=== PATIENT | female | born 1960 | race African-American/Black ===

== ENCOUNTER 2017-04-22 11:48 | Inpatient (IN) | payer OTHER ==
[2017-04-22 14:07] VITALS: BMI 18.8
--- NOTE | 2017-04-22 14:18 | HP ---
Admission ROS S - HPI Chief Complaint: I NEED HELP TO GO TO REHAB FOR ALCOHOL AND CRACK DEPENDENCE Allergies/Adverse Reactions: Allergies Allergy/AdvReac Type Severity Reaction Status Date / Time No Known Allergies Allergy Verified 04/22/17 14:10 History of Present Illness: THIS 57 YEARS OLD FEMALE WITH ALCOHOL AND COCAINE DEPENDENCE,SEEKING REHAB,LAST TREATMENT 2016 CORNER STONE HTN ON NO MED VERTIGO 12.5 MGS PO TID PRN FOR PRN ASTHMA WEIGHT LOSS ANXIETY,DEPRESSION LONGEST SOBRIETY 7 YEARS AMBULATION WITH CANE Exam Limitations: No Limitations - Ebola screening Have you traveled outside of the country in the last 21 days: No (N) Have you had contact with anyone from an Ebola affected area: No Have you been sick,other than usual withdrawal symptoms: No Do you have a fever: No - Review of Systems Constitutional: No Symptoms Reported, Unintentional Wgt. 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) Respiratory: reports: No Symptoms reported, Other (ASTHMA) Cardiac: reports: No Symptoms Reported GI: reports: No Symptoms Reported : reports: No Symptoms Reported Musculoskeletal: reports: No Symptoms Reported Integumentary: reports: No Symptoms Reported Neuro: reports: No Symptoms reported Endocrine: reports: No Symptoms Reported Hematology: reports: Other (HIV) Psychiatric: reports: Anxious, Depressed (INSOMNIA) Patient History - Patient Medical History Hx Anemia: Yes Hx Asthma: Yes Hx Chronic Obstructive Pulmonary Disease (COPD): No Hx Cancer: No Hx Cardiac Disorders: No Hx Congestive Heart Failure: Yes (1x in the past ) Hx Hypertension: Yes (NO MED) Hx Hypercholesterolemia: No Hx Pacemaker: No HX Cerebrovascular Accident: No Hx Seizures: No Hx Dementia: Yes (forgetfull ) Hx Diabetes: No Hx Gastrointestinal Disorders: No Hx Liver Disease: No Hx Genitourinary Disorders: No Hx Sexually Transmitted Disorders: No Hx Renal Disease (ESRD): No Hx Thyroid Disease: No Hx Human Immunodeficiency Virus (HIV): Yes (Atripla SINCE 1994) Hx Hepatitis C: No Hx Depression: Yes (ANXIETY) Hx Suicide Attempt: No Hx Schizophrenia: No Other Medical History: NO SUICIDAL,NO HOMICIDAL - Patient Surgical History Hx Abdominal Surgery: Yes (ectopic pregnanancy ) Hx Orthopedic Surgery: Yes (fx akle ) - PPD History Previous Implant?: Yes Documented Results: Positive w/o proof PPD to be Administered?: No - Reproductive History Patient is a Female of Child Bearing Age (11 -55 yrs old): No Last Menstrual Period: 10/28/10 Patient : No - Smoking Cessation Smoking history: Current every day smoker Have you smoked in the past 12 months: Yes Aproximately how many cigarettes per day: 10 Hx Chewing Tobacco Use: No Initiated information on smoking cessation: Yes 'Breaking Loose' booklet given: 04/22/17 - Substance & Tx. History Hx Alcohol Use: Yes Substance Use Type: Alcohol Hx Substance Use Treatment: Yes ([place] [address]) - Substances Abused Crack Route: Smoking Frequency: 3-6 times per week Amount used: $100 AND UP Age of first use: 18 Date of Last Use: 04/22/17 Heroin Route: Inhalation Frequency: 1-3 times last 30 days Amount used: 6 BAGS Age of first use: 18 Date of Last Use: 04/22/17 Alcohol Route: Oral Frequency: 3-6 times per week Amount used: 1 PINT OF VODKA Age of first use: 14 Date of Last Use: 04/22/17 Family Disease History - Family Disease History Family Disease History: CA: Grandparent, Respiratory: Grandparent, Other: Mother (alcohol and drug dependencies ) Admission Physical Exam S - Vital Signs Vital Signs: Vital Signs - 24 hr 04/22/17 14:04 Temperature 96.0 F L Pulse Rate 69 Respiratory 16 Rate Blood Pressure 143/89 - Physical General Appearance: Yes: Within Normal Limits HEENTM: Yes: Hearing grossly Normal, Normal ENT Inspection, Pharynx Normal Respiratory: Yes: Lungs Clear, Normal Breath Sounds, No Respiratory Distress Neck: Yes: Within Normal Limits, Supple, Trachea in good position Breast: Yes: Breast Exam Deferred Cardiology: Yes: Within Normal Limits, Regular Rhythm, Regular Rate, S1, S2 Abdominal: Yes: Within Normal Limits, Normal Bowel Sounds, Non Tender, Flat, Soft Genitourinary: Yes: Within Normal Limits Back: Yes: Within Normal Limits Musculoskeletal: Yes: full range of Motion, Muscle Pain Extremities: Yes: Normal Capillary Refill, Normal Inspection, Other (HIPS PAIN AMBULATION WITH CANE) Neurological: Yes: Within Normal Limits, machine operator farmworker II-XII NML intact, Alert, Normal Mood/Affect, Normal Response Integumentary: Yes: Within Normal Limits Lymphatic: Yes: Within Normal Limits - Diagnostic (1) Alcohol dependence Current Visit: No Status: Chronic Comment: . (2) Cannabis dependence Current Visit: No Status: Chronic Comment: . (3) Nicotine dependence Current Visit: No Status: Chronic Comment: . (4) Cocaine dependence Current Visit: Yes Status: Acute (5) Methadone maintenance therapy patient Current Visit: Yes Status: Acute (6) Arthritis Current Visit: No Status: Acute Comment: . (7) Substance or medication-induced sleep disorder Current Visit: No Status: Acute (8) HIV disease Current Visit: No Status: Chronic Comment: . (9) Use of cane as ambulatory aid Current Visit: Yes Status: Acute Cleared for Admission [facility] - Detox or Rehab [facility] Level of Care: Medically Managed Claeared for Rehab Admission: Yes [facility] Breath Alcohol Content Breath Alcohol Content: 0 Urine Pregancy Test - Result Urine Test Results: Negative- NO Line Present Urine Drug Screen - Results Drug Screen Negative: No Urine Drug Screen Results: AMELIA-Cocaine, OPI-Opiates, MTD-Methadone, OXY- Oxycodone
[2017-04-22] MEDS ORDERED: MENTHOL/PHENOL 1 EACH UD MM PRN (14:55)
[2017-04-22] MEDS ORDERED: P-EPHED 60MG/TRIPROLIDI 2.5MG TABLET PO PRN (14:55)
[2017-04-22] MEDS ORDERED: MAGNESIUM CITRATE 300 ML BOTTLE PO PRN (14:55)
[2017-04-22] MEDS ORDERED: hydrOXYzine PAMOATE 25 MG CAPSULE (FP) PO PRN (14:55)
[2017-04-22] MEDS ORDERED: ACETAMINOPHEN 325 MG TABLET (FP) PO PRN (14:55)
[2017-04-22] MEDS ORDERED: guaiFENesin/D-METHORPHAN HB 10 ML UNIT-DOSE CUPS PO PRN (14:55)
[2017-04-22] MEDS ORDERED: MAGNESIUM HYDROX 2400MG/30ML ORAL SUSPENSION 30 ML CUP PO PRN (14:55)
[2017-04-22] MEDS ORDERED: MECLIZINE HCL 12.5 MG TABLET PO PRN (14:59)
[2017-04-22] MEDS ORDERED: DOCUSATE SODIUM 100 MG CAPSULE (FP) PO PRN (14:59)
[2017-04-22] MEDS ORDERED: ALBUTEROL SO4 18 GM HFA INHALER IH PRN (14:59)
[2017-04-22 17:18] LABS: HEMOGLOBIN 12.1 GM/dL (10.7-15.3); MCH 29.2 pg (25.7-33.7); MEAN CELL VOLUME 91.4 fl (80-96); MEAN PLT VOLUME 9.3 fl (7.5-11.1); PLATELET COUNT 255 K/MM3 (134-434); RBC 4.16 M/mm3 (3.60-5.2); RDW 13.1 % (11.6-15.6); WHITE BLOOD COUNT 9.7 K/mm3 (4.0-10.0)
[2017-04-22 17:46] LABS: ALBUMIN 3.2 g/dl (3.4-5.0); CALCIUM 8.3 mg/dL (8.5-10.1); CHLORIDE 104 mmol/L (98-107); POTASSIUM 3.6 mmol/L (3.5-5.1); SODIUM 140 mmol/L (136-145)
[2017-04-22 17:52] LABS: ALK PHOS 112 U/L (45-117); ANION GAP 9 (8-16); BILIRUBIN,TOTAL 0.8 mg/dL (0.2-1.0); BLOOD UREA NITROGEN 10 mg/dL (7-18); CO2 27 mmol/L (21-32); CREATININE 0.8 mg/dL (0.55-1.02); GLUCOSE,RANDOM 62 mg/dL (74-106); SGOT/AST 19 U/L (15-37); SGPT/ALT 22 U/L (12-78)
[2017-04-22] MEDS: THIAMINE HCL 100 MG TABLET (FP) PO SCH (22:17)
--- NOTE | 2017-04-23 00:49 | PN ---
S Progress Note Note: Patient with abnormal EKG was seen and evaluated at bedside. Patient's EKG indicates sinus bradycardia, T wave abnormality considering anterolateral ischemia. Prolonged QT/QTc was 644/632 ms and 648/636 ms respectively and TX interval was 134/140 ms. Patient reports fatigue and denies any form of pain, SOB, nausea or vomiting. Vital signs stable and potassium level was 3.6. Dr Marie was contacted and EKG faxed to her. She reviewed EKG and advised that patient can be sent to ER for further evaluation. Patient refused to go to ER. Risks and consequences of patient's action including the possibility of stroke explained to the patient. She verbalized understanding of instructions and she signed the refusal of medical treatment form. Fluid hydration encouraged. Will monitor patient
[2017-04-23] MEDS: EMTRICITABINE 200MG/TENOFOVIR 300MG PO SCH (09:59)
[2017-04-23] MEDS: EFAVIRENZ 600 MG TABLET PO SCH (10:00)
[2017-04-23] MEDS: FLUTICASONE PROP 0.05% 16 GM NASAL SPRAY NS SCH (10:00)
[2017-04-23] MEDS: PRENATAL VITAMINS W/ FOLIC ACID TABLET (FP) PO SCH (10:00)
[2017-04-23] MEDS: GABAPENTIN 400 MG CAPSULE (FP) PO SCH ×3 (10:00→21:43)
[2017-04-23] MEDS ORDERED: PATIENT'S OWN MEDICATION (NON-FORMULARY) (Efavirenz/Emtricitab/Tenofovir 1 TAB) PO SCH (10:00)
[2017-04-23] MEDS ORDERED: PT OWN MED DRAWER 7, Y5N ONE (10:08)
--- NOTE | 2017-04-23 10:31 | PN ---
[facility] Progress Note Note: methadone on hold due to prolong qinitial ekg brdycardia with qt 608/586 repeat this am showed bradycardia vpcs 50/min polong qt 580 Vital Signs Period Temp Pulse Resp BP Sys/Umanzor Pulse Ox Last 24 Hr 96.0 F-98.7 F 50-70 16-18 112-143/71-89 Vital Signs Temperature 98.1 F 04/23/17 09:45 Pulse Rate 50 L 04/23/17 09:45 Respiratory Rate 16 04/23/17 09:45 Blood Pressure 118/71 04/23/17 09:45 O2 Sat by Pulse Oximetry (%) no withdrawal symptom discussed with AGREED WITH HOLDING METHADONE UNTIL FURTHER EVALUATION BY DR NAVARRETE
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
--- NOTE | 2017-04-23 14:18 | EKG ---
Test Reason : Blood Pressure : / mmHG Vent. Rate : 058 BPM Atrial Rate : 058 BPM P-R Int : 140 ms QRS Dur : 076 ms QT Int : 648 ms P-R-T Axes : 067 018 063 degrees QTc Int : 636 ms SINUS BRADYCARDIA POSSIBLE LEFT ATRIAL ENLARGEMENT T WAVE ABNORMALITY, CONSIDER ANTEROLATERAL ISCHEMIA PROLONGED QT ABNORMAL ECG WHEN COMPARED WITH ECG OF 22-APR-2017 22:26, NONSPECIFIC T WAVE ABNORMALITY NOW EVIDENT IN INFERIOR LEADS Confirmed by ZACH SANCHEZ MD ([id number]) on 04/23/2017 2:18:09 PM Referred By: Confirmed By:ZACH SANCHEZ MD
--- NOTE | 2017-04-23 14:19 | EKG ---
Test Reason : Blood Pressure : / mmHG Vent. Rate : 058 BPM Atrial Rate : 058 BPM P-R Int : 134 ms QRS Dur : 076 ms QT Int : 644 ms P-R-T Axes : 060 010 086 degrees QTc Int : 632 ms SINUS BRADYCARDIA POSSIBLE LEFT ATRIAL ENLARGEMENT T WAVE ABNORMALITY, CONSIDER ANTEROLATERAL ISCHEMIA PROLONGED QT ABNORMAL ECG NO PREVIOUS ECGS AVAILABLE Confirmed by ZACH SANCHEZ MD ([id number]) on 04/23/2017 2:18:51 PM Referred By: Confirmed By:ZACH SANCHEZ MD
[2017-04-23] MEDS ORDERED: ESCITALOPRAM OXALATE 10 MG TABLET (FP) PO SCH (16:30)
[2017-04-23] MEDS ORDERED: METHADONE HCL 10 MG TABLET PO ONE (17:01)
--- NOTE | 2017-04-23 17:13 | PN ---
[facility] Progress Note (SOAP) Subjective: pateint found to have prolonged qtc on admission - methadone dose 200mg daily, ldm yesteray, refusing to go to ed as recommended. methadone dose held for today, repeatekg shows derasing qtc, patietn reports becoming uncomforale off methadone, vaginal discharge and pid sympotms. Objective: 04/23/17 18:30 Vital Signs - 24 hr 04/22/17 04/23/17 04/23/17 20:50 00:43 04:46 Temperature 98.7 F 97.4 F L Pulse Rate 67 70 Respiratory 18 18 18 Rate Blood Pressure 112/77 118/77 04/23/17 04/23/17 07:44 09:45 Temperature 97.9 F 98.1 F Pulse Rate 50 L 50 L Respiratory 18 16 Rate Blood Pressure 129/87 118/71 brdycardic 04/23/17 18:30 Laboratory Tests 04/22/17 04/22/17 04/22/17 15:40 15:40 15:40 WBC 9.7 D RBC 4.16 Hgb 12.1 D Hct 38.0 MCV 91.4 MCH 29.2 MCHC 32.0 RDW 13.1 D Plt Count 255 MPV 9.3 D Sodium 140 Potassium 3.6 Chloride 104 Carbon Dioxide 27 Anion Gap 9 BUN 10 Creatinine 0.8 Creat Clearance w eGFR > 60 Random Glucose 62 L Calcium 8.3 L Total Bilirubin 0.8 D AST 19 ALT 22 Alkaline Phosphatase 112 Total Protein 9.0 H Albumin 3.2 L RPR Titer Nonreactive hypoalbuminemia, low k Assessment: 04/23/17 18:30 prolonged qtc 2/2 methadone dose, methadone held, qc decreasing but patient uncomfortable, understands the risks of continuing methaadoen with prolonged qtc - agrees to decrease methadone and split dose 75mg bid first dose now. repeat ekg in am, monistat for yeast infection, cleocin for pid (methronidazole can prolong qtc), will d/c trazadone as that also can prolong qtc. . will follow, patient is well aware of risks of torsad with continued methadone adminsitration and has chosen to continue treatment at a reduced dose. wednesday will address if dose can be further reduced. avoid all qtc prolonging medication. If any sympotms palpiatitions, dizziness patient is to go to the nurse and be transferred to Ed. check mg level, will supplement k x1 dose 04/23/17 18:34
[2017-04-23] MEDS ORDERED: METHADONE HCL 10 MG TABLET PO SCH (17:15)
[2017-04-23] MEDS ORDERED: POTASSIUM CHLORIDE TABS 20 MEQ TABLET.ER (FP) PO ONE (17:30)
[2017-04-23] MEDS ORDERED: METHADONE 40 MG, METHADONE 30 MG, METHADONE 5 MG PO ONE (17:45)
[2017-04-23] MEDS ORDERED: METHADONE 40 MG, METHADONE 30 MG, METHADONE 5 MG PO SCH (18:00)
[2017-04-23] MEDS ORDERED: METHADONE HCL 5 MG TABLET ONE (18:58)
[2017-04-23] MEDS ORDERED: METHADONE HCL 10 MG TABLET ONE (18:58)
[2017-04-23] MEDS ORDERED: METHADONE HCL 40 MG DISPERSABLE TABLET ONE (18:59)
[2017-04-23] MEDS: MICONAZOLE NITRATE 100 MG SUPP SUPP.VAG PV SCH (21:43)
[2017-04-23] MEDS: CLINDAMYCIN HCL 150 MG CAPSULE (FP) PO SCH (21:43)
[2017-04-23] MEDS: THIAMINE HCL 100 MG TABLET (FP) PO SCH (21:43)
[2017-04-23] MEDS: SUVOREXANT 10 MG TABLET PO SCH (21:44)
[2017-04-23] MEDS ORDERED: traZODone HCL 150 MG TABLET PO SCH (22:00)
[2017-04-23] MEDS ORDERED: metroNIDAZOLE 250 MG TABLET PO SCH (22:00)
[2017-04-23] MEDS ORDERED: DOCUSATE SODIUM 100 MG CAPSULE (FP) PO SCH (22:00)
[2017-04-23 23:06] LABS: URINE APPEARANCE CLEAR; URINE BILIRUBIN NEGATIVE (NEGATIVE); URINE BLOOD NEGATIVE (NEGATIVE); URINE COLOR YELLOW; URINE GLUCOSE (UA) NEGATIVE (NEGATIVE); URINE KETONE NEGATIVE (NEGATIVE); URINE NITRITE NEGATIVE (NEGATIVE); URINE PROTEIN NEGATIVE (NEGATIVE); URINE UROBILINOGEN NEGATIVE mg/dL (0.2-1.0)
[2017-04-23 23:07] LABS: URINE LEUK ESTERASE 3+ (NEGATIVE)
[2017-04-23 23:13] LABS: EPI CELLS FEW /HPF (FEW)
[2017-04-24] MEDS ORDERED: METHADONE HCL 40 MG DISPERSABLE TABLET ONE ×2 (06:21→17:55)
[2017-04-24] MEDS ORDERED: METHADONE HCL 5 MG TABLET ONE ×2 (06:21→17:55)
[2017-04-24] MEDS ORDERED: METHADONE HCL 10 MG TABLET ONE ×2 (06:21→17:55)
[2017-04-24] MEDS: METHADONE 40 MG, METHADONE 30 MG, METHADONE 5 MG PO SCH ×2 (06:36→17:57)
[2017-04-24] MEDS: CLINDAMYCIN HCL 150 MG CAPSULE (FP) PO SCH ×3 (06:37→21:33)
[2017-04-24] MEDS: GABAPENTIN 400 MG CAPSULE (FP) PO SCH ×3 (06:38→21:33)
--- NOTE | 2017-04-24 08:49 | EKG ---
Test Reason : Blood Pressure : / mmHG Vent. Rate : 056 BPM Atrial Rate : 056 BPM P-R Int : 128 ms QRS Dur : 074 ms QT Int : 608 ms P-R-T Axes : 064 005 075 degrees QTc Int : 586 ms SINUS BRADYCARDIA POSSIBLE LEFT ATRIAL ENLARGEMENT LEFT VENTRICULAR HYPERTROPHY T WAVE ABNORMALITY, CONSIDER ANTEROLATERAL ISCHEMIA PROLONGED QT ABNORMAL ECG WHEN COMPARED WITH ECG OF 22-APR-2017 23:56, NO SIGNIFICANT CHANGE WAS FOUND Confirmed by LYNN GOMES MD ([id number]) on 04/24/2017 8:48:59 AM Referred By: Confirmed By:LYNN GOMES MD
[2017-04-24] MEDS ORDERED: PT OWN MED DRAWER 7, Y5N ONE (08:50)
[2017-04-24] MEDS: FLUTICASONE PROP 0.05% 16 GM NASAL SPRAY NS SCH (09:15)
[2017-04-24] MEDS: EFAVIRENZ 600 MG TABLET PO SCH (09:15)
[2017-04-24] MEDS: DULoxetine HCL 20 MG CAPSULE.DR (FP) PO SCH (09:15)
[2017-04-24] MEDS: PRENATAL VITAMINS W/ FOLIC ACID TABLET (FP) PO SCH (09:16)
[2017-04-24] MEDS: EMTRICITABINE 200MG/TENOFOVIR 300MG PO SCH (09:16)
[2017-04-24 10:33] LABS: ANION GAP 7 (8-16); BILIRUBIN,TOTAL 0.4 mg/dL (0.2-1.0); BLOOD UREA NITROGEN 12 mg/dL (7-18); CALCIUM 8.3 mg/dL (8.5-10.1); CHLORIDE 106 mmol/L (98-107); CO2 26 mmol/L (21-32); GLUCOSE,RANDOM 94 mg/dL (74-106); MAGNESIUM 1.9 mg/dL (1.8-2.4); SGOT/AST 20 U/L (15-37); SGPT/ALT 25 U/L (12-78); SODIUM 139 mmol/L (136-145); TOT PROT 8.6 g/dl (6.4-8.2)
[2017-04-24 10:34] LABS: ALK PHOS 104 U/L (45-117)
--- NOTE | 2017-04-24 16:01 | EKG ---
Test Reason : Blood Pressure : / mmHG Vent. Rate : 079 BPM Atrial Rate : 079 BPM P-R Int : 124 ms QRS Dur : 076 ms QT Int : 418 ms P-R-T Axes : 065 005 094 degrees QTc Int : 479 ms SINUS RHYTHM WITH FREQUENT PREMATURE VENTRICULAR COMPLEXES IN A PATTERN OF BIGEMINY POSSIBLE LEFT ATRIAL ENLARGEMENT T WAVE ABNORMALITY, CONSIDER ANTERIOR ISCHEMIA ABNORMAL ECG WHEN COMPARED WITH ECG OF 23-APR-2017 09:00, PREMATURE VENTRICULAR COMPLEXES ARE NOW PRESENT NONSPECIFIC T WAVE ABNORMALITY HAS REPLACED INVERTED T WAVES IN LATERAL LEADS QT HAS SHORTENED Confirmed by MIREYA ZAMORA, LYNN ([id number]) on 04/24/2017 4:00:44 PM Referred By: Confirmed By:LYNN GOMES MD
[2017-04-24] MEDS ORDERED: METHADONE HCL 10 MG TABLET PO SCH (17:15)
[2017-04-24] MEDS: THIAMINE HCL 100 MG TABLET (FP) PO SCH (21:33)
[2017-04-24] MEDS: MICONAZOLE NITRATE 100 MG SUPP SUPP.VAG PV SCH (21:34)
[2017-04-24] MEDS: SUVOREXANT 10 MG TABLET PO SCH (22:46)
[2017-04-25] MEDS ORDERED: METHADONE HCL 10 MG TABLET ONE ×2 (02:58→19:03)
[2017-04-25] MEDS ORDERED: METHADONE HCL 5 MG TABLET ONE ×2 (02:58→19:02)
[2017-04-25] MEDS ORDERED: METHADONE HCL 40 MG DISPERSABLE TABLET ONE ×2 (02:58→19:03)
[2017-04-25] MEDS: METHADONE 40 MG, METHADONE 30 MG, METHADONE 5 MG PO SCH ×2 (06:25→19:03)
[2017-04-25] MEDS: CLINDAMYCIN HCL 150 MG CAPSULE (FP) PO SCH ×3 (06:26→21:25)
[2017-04-25] MEDS: GABAPENTIN 400 MG CAPSULE (FP) PO SCH ×3 (06:26→21:25)
[2017-04-25] MEDS: LOPERAMIDE HCL 2 MG CAPSULE PO PRN (06:27)
[2017-04-25] MEDS ORDERED: PT OWN MED DRAWER 7, Y5N ONE (08:29)
[2017-04-25] MEDS: MAG HYDROX/AL HYDROX/SIMETH 30 ML UNIT-DOSE CUP PO PRN (09:01)
[2017-04-25] MEDS: EFAVIRENZ 600 MG TABLET PO SCH (09:45)
[2017-04-25] MEDS: DULoxetine HCL 20 MG CAPSULE.DR (FP) PO SCH (09:45)
[2017-04-25] MEDS: FLUTICASONE PROP 0.05% 16 GM NASAL SPRAY NS SCH (09:45)
[2017-04-25] MEDS: EMTRICITABINE 200MG/TENOFOVIR 300MG PO SCH (09:46)
[2017-04-25] MEDS: PRENATAL VITAMINS W/ FOLIC ACID TABLET (FP) PO SCH (09:46)
[2017-04-25] MEDS: THIAMINE HCL 100 MG TABLET (FP) PO SCH (21:25)
[2017-04-25] MEDS: MICONAZOLE NITRATE 100 MG SUPP SUPP.VAG PV SCH (21:26)
[2017-04-25] MEDS: SUVOREXANT 10 MG TABLET PO SCH (21:26)
[2017-04-26] MEDS ORDERED: METHADONE HCL 5 MG TABLET ONE ×2 (03:02→16:59)
[2017-04-26] MEDS ORDERED: METHADONE HCL 10 MG TABLET ONE ×3 (03:03→18:47)
[2017-04-26] MEDS ORDERED: METHADONE HCL 40 MG DISPERSABLE TABLET ONE ×2 (03:03→17:00)
[2017-04-26] MEDS: METHADONE 40 MG, METHADONE 30 MG, METHADONE 5 MG PO SCH ×2 (06:42→18:37)
[2017-04-26] MEDS: GABAPENTIN 400 MG CAPSULE (FP) PO SCH ×3 (06:43→21:42)
[2017-04-26] MEDS: CLINDAMYCIN HCL 150 MG CAPSULE (FP) PO SCH ×3 (06:43→21:42)
[2017-04-26] MEDS ORDERED: PT OWN MED DRAWER 7, Y5N ONE ×2 (08:50→09:24)
[2017-04-26] MEDS: FLUTICASONE PROP 0.05% 16 GM NASAL SPRAY NS SCH (09:18)
[2017-04-26] MEDS: PRENATAL VITAMINS W/ FOLIC ACID TABLET (FP) PO SCH (09:18)
[2017-04-26] MEDS: DULoxetine HCL 20 MG CAPSULE.DR (FP) PO SCH (09:18)
[2017-04-26] MEDS: EFAVIRENZ 600 MG TABLET PO SCH (09:18)
[2017-04-26] MEDS: EMTRICITABINE 200MG/TENOFOVIR 300MG PO SCH (09:18)
[2017-04-26] MEDS: IBUPROFEN 400 MG TABLET (FP) PO PRN (09:20)
[2017-04-26] MEDS: THIAMINE HCL 100 MG TABLET (FP) PO SCH (21:42)
[2017-04-26] MEDS: SUVOREXANT 10 MG TABLET PO SCH (21:43)
[2017-04-26] MEDS: MICONAZOLE NITRATE 100 MG SUPP SUPP.VAG PV SCH (21:43)
[2017-04-27] MEDS ORDERED: METHADONE HCL 5 MG TABLET ONE ×2 (03:12→17:32)
[2017-04-27] MEDS ORDERED: METHADONE HCL 40 MG DISPERSABLE TABLET ONE ×2 (03:14→17:33)
[2017-04-27] MEDS ORDERED: METHADONE HCL 10 MG TABLET ONE ×2 (03:14→17:33)
[2017-04-27] MEDS: CLINDAMYCIN HCL 150 MG CAPSULE (FP) PO SCH ×3 (06:21→21:57)
[2017-04-27] MEDS: GABAPENTIN 400 MG CAPSULE (FP) PO SCH ×3 (06:21→21:57)
[2017-04-27] MEDS: METHADONE 40 MG, METHADONE 30 MG, METHADONE 5 MG PO SCH ×2 (06:21→19:07)
[2017-04-27] MEDS ORDERED: PT OWN MED DRAWER 7, Y5N ONE (08:44)
[2017-04-27] MEDS: PRENATAL VITAMINS W/ FOLIC ACID TABLET (FP) PO SCH (10:09)
[2017-04-27] MEDS: FLUTICASONE PROP 0.05% 16 GM NASAL SPRAY NS SCH (10:09)
[2017-04-27] MEDS: DULoxetine HCL 20 MG CAPSULE.DR (FP) PO SCH (10:09)
[2017-04-27] MEDS: EMTRICITABINE 200MG/TENOFOVIR 300MG PO SCH (10:10)
[2017-04-27] MEDS: EFAVIRENZ 600 MG TABLET PO SCH (10:10)
[2017-04-27] MEDS: MAG HYDROX/AL HYDROX/SIMETH 30 ML UNIT-DOSE CUP PO PRN (10:12)
[2017-04-27] MEDS: THIAMINE HCL 100 MG TABLET (FP) PO SCH (21:57)
[2017-04-27] MEDS: SUVOREXANT 10 MG TABLET PO SCH (21:58)
[2017-04-27] MEDS: MICONAZOLE NITRATE 100 MG SUPP SUPP.VAG PV SCH (21:58)
[2017-04-28] MEDS ORDERED: METHADONE HCL 5 MG TABLET ONE ×2 (02:53→17:25)
[2017-04-28] MEDS ORDERED: METHADONE HCL 10 MG TABLET ONE ×2 (02:53→17:26)
[2017-04-28] MEDS ORDERED: METHADONE HCL 40 MG DISPERSABLE TABLET ONE ×2 (02:53→17:27)
[2017-04-28] MEDS: GABAPENTIN 400 MG CAPSULE (FP) PO SCH ×3 (06:30→21:39)
[2017-04-28] MEDS: CLINDAMYCIN HCL 150 MG CAPSULE (FP) PO SCH ×3 (06:30→21:39)
[2017-04-28] MEDS: METHADONE 40 MG, METHADONE 30 MG, METHADONE 5 MG PO SCH ×2 (06:30→19:10)
[2017-04-28] MEDS ORDERED: PT OWN MED DRAWER 7, Y5N ONE (08:42)
[2017-04-28] MEDS: EMTRICITABINE 200MG/TENOFOVIR 300MG PO SCH (10:27)
[2017-04-28] MEDS: EFAVIRENZ 600 MG TABLET PO SCH (10:28)
[2017-04-28] MEDS: DULoxetine HCL 20 MG CAPSULE.DR (FP) PO SCH (10:28)
[2017-04-28] MEDS: PRENATAL VITAMINS W/ FOLIC ACID TABLET (FP) PO SCH (10:28)
[2017-04-28] MEDS: FLUTICASONE PROP 0.05% 16 GM NASAL SPRAY NS SCH (10:29)
[2017-04-28] MEDS ORDERED: diphenhydrAMINE HCL 50 MG CAPSULE PO PRN (13:48)
--- NOTE | 2017-04-28 13:53 | PN ---
[facility] Progress Note Note: Patient will like increase in Methadone dosage because she is having difficulty sleeping at night. Currently methadone dose 75mg BID Patient is AOx3, no apartment distress, no SOB, vertigo, chest pain or palpitations. Reports prior hx of chest pain. Vital Signs Temperature 97.3 F L 04/28/17 07:24 Pulse Rate 81 04/28/17 07:24 Respiratory Rate 18 04/28/17 07:24 Blood Pressure 118/83 04/28/17 07:24 O2 Sat by Pulse Oximetry (%) Laboratory Last Values WBC 9.7 K/mm3 (4.0-10.0) D 04/22/17 15:40 RBC 4.16 M/mm3 (3.60-5.2) 04/22/17 15:40 Hgb 12.1 GM/dL (10.7-15.3) D 04/22/17 15:40 Hct 38.0 % (32.4-45.2) 04/22/17 15:40 MCV 91.4 fl (80-96) 04/22/17 15:40 MCH 29.2 pg (25.7-33.7) 04/22/17 15:40 MCHC 32.0 g/dl (32.0-36.0) 04/22/17 15:40 RDW 13.1 % (11.6-15.6) D 04/22/17 15:40 Plt Count 255 K/MM3 (134-434) 04/22/17 15:40 MPV 9.3 fl (7.5-11.1) D 04/22/17 15:40 Sodium 139 mmol/L (136-145) 04/24/17 09:30 Potassium 4.0 mmol/L (3.5-5.1) 04/24/17 09:30 Chloride 106 mmol/L (98-107) 04/24/17 09:30 Carbon Dioxide 26 mmol/L (21-32) 04/24/17 09:30 Anion Gap 7 (8-16) L 04/24/17 09:30 BUN 12 mg/dL (7-18) 04/24/17 09:30 Creatinine 1.0 mg/dL (0.55-1.02) 04/24/17 09:30 Creat Clearance w eGFR 56.75 (>60) 04/24/17 09:30 Random Glucose 94 mg/dL (74-106) 04/24/17 09:30 Calcium 8.3 mg/dL (8.5-10.1) L 04/24/17 09:30 Magnesium 1.9 mg/dL (1.8-2.4) 04/24/17 09:30 Total Bilirubin 0.4 mg/dL (0.2-1.0) D 04/24/17 09:30 AST 20 U/L (15-37) 04/24/17 09:30 ALT 25 U/L (12-78) 04/24/17 09:30 Alkaline Phosphatase 104 U/L (45-117) 04/24/17 09:30 Total Protein 8.6 g/dl (6.4-8.2) H 04/24/17 09:30 Albumin 3.0 g/dl (3.4-5.0) L 04/24/17 09:30 Urine Color Yellow 04/23/17 17:00 Urine Appearance Clear 04/23/17 17:00 Urine pH 7.0 (5.0-8.0) 04/23/17 17:00 Ur Specific [place] 1.011 (1.001-1.035) 04/23/17 17:00 Urine Protein Negative (NEGATIVE) 04/23/17 17:00 Urine Glucose (UA) Negative (NEGATIVE) 04/23/17 17:00 Urine Ketones Negative (NEGATIVE) 04/23/17 17:00 Urine Blood Negative (NEGATIVE) 04/23/17 17:00 Urine Nitrite Negative (NEGATIVE) 04/23/17 17:00 Urine Bilirubin Negative (NEGATIVE) 04/23/17 17:00 Urine Urobilinogen Negative mg/dL (0.2-1.0) 04/23/17 17:00 Ur Leukocyte Esterase 3+ (NEGATIVE) H D 04/23/17 17:00 Urine WBC (Auto) 3 /hpf (3-5) 04/23/17 17:00 Urine RBC (Auto) 3 /hpf (0-3) 04/23/17 17:00 Ur Epithelial Cells Few /HPF (FEW) 04/23/17 17:00 RPR Titer Nonreactive (NONREACTIVE) 04/22/17 15:40 Plan: increase fluids Benadryl 50 mg QHS continue methadone 75 mg BID repeat EKG Patient to advise nurse if SOB or chest pain present and patient to go to the ED
[2017-04-28] MEDS: THIAMINE HCL 100 MG TABLET (FP) PO SCH (21:39)
[2017-04-28] MEDS: SUVOREXANT 10 MG TABLET PO SCH (21:39)
[2017-04-28] MEDS: MICONAZOLE NITRATE 100 MG SUPP SUPP.VAG PV SCH (21:40)
[2017-04-29] MEDS ORDERED: METHADONE HCL 5 MG TABLET ONE ×2 (03:08→17:01)
[2017-04-29] MEDS ORDERED: METHADONE HCL 10 MG TABLET ONE ×2 (03:08→17:02)
[2017-04-29] MEDS ORDERED: METHADONE HCL 40 MG DISPERSABLE TABLET ONE ×2 (03:08→17:03)
[2017-04-29] MEDS: CLINDAMYCIN HCL 150 MG CAPSULE (FP) PO SCH ×3 (06:32→21:36)
[2017-04-29] MEDS: METHADONE 40 MG, METHADONE 30 MG, METHADONE 5 MG PO SCH ×2 (06:32→18:52)
[2017-04-29] MEDS: GABAPENTIN 400 MG CAPSULE (FP) PO SCH ×3 (06:33→21:36)
[2017-04-29] MEDS ORDERED: PT OWN MED DRAWER 7, Y5N ONE (08:45)
[2017-04-29] MEDS: FLUTICASONE PROP 0.05% 16 GM NASAL SPRAY NS SCH (09:21)
[2017-04-29] MEDS: EMTRICITABINE 200MG/TENOFOVIR 300MG PO SCH (09:21)
[2017-04-29] MEDS: EFAVIRENZ 600 MG TABLET PO SCH (09:21)
[2017-04-29] MEDS: PRENATAL VITAMINS W/ FOLIC ACID TABLET (FP) PO SCH (09:22)
[2017-04-29] MEDS: DULoxetine HCL 20 MG CAPSULE.DR (FP) PO SCH (09:22)
--- NOTE | 2017-04-29 11:54 | EKG ---
Test Reason : Blood Pressure : / mmHG Vent. Rate : 073 BPM Atrial Rate : 073 BPM P-R Int : 136 ms QRS Dur : 068 ms QT Int : 430 ms P-R-T Axes : 063 011 017 degrees QTc Int : 473 ms NORMAL SINUS RHYTHM POSSIBLE LEFT ATRIAL ENLARGEMENT T WAVE ABNORMALITY, CONSIDER ANTEROLATERAL ISCHEMIA PROLONGED QT ABNORMAL ECG WHEN COMPARED WITH ECG OF 24-APR-2017 11:17, PREMATURE VENTRICULAR COMPLEXES ARE NO LONGER PRESENT NONSPECIFIC T WAVE ABNORMALITY NOW EVIDENT IN INFERIOR LEADS Confirmed by REFUGIO CLARK MD ([id number]) on 04/29/2017 11:54:26 AM Referred By: Confirmed By:REFUGIO CLARK MD
--- NOTE | 2017-04-29 11:55 | EKG ---
Test Reason : Blood Pressure : / mmHG Vent. Rate : 084 BPM Atrial Rate : 084 BPM P-R Int : 132 ms QRS Dur : 066 ms QT Int : 406 ms P-R-T Axes : 066 013 064 degrees QTc Int : 479 ms NORMAL SINUS RHYTHM CANNOT RULE OUT ANTERIOR INFARCT , AGE UNDETERMINED ABNORMAL ECG WHEN COMPARED WITH ECG OF 28-APR-2017 18:28, NONSPECIFIC T WAVE ABNORMALITY, IMPROVED IN INFERIOR LEADS Confirmed by EDUARDO ZAMORA, REFUGIO ([id number]) on 04/29/2017 11:54:47 AM Referred By: Confirmed By:REFUGIO CLARK MD
[2017-04-29] MEDS ORDERED: NICOTINE POLACRILEX 2 MG GUM BUC PRN (14:33)
[2017-04-29] MEDS: NICOTINE 14 MG/24 HOURS TOPICAL PATCH TD SCH (16:06)
[2017-04-29] MEDS: THIAMINE HCL 100 MG TABLET (FP) PO SCH (21:36)
[2017-04-29] MEDS: LOPERAMIDE HCL 2 MG CAPSULE PO PRN (21:37)
[2017-04-29] MEDS: SUVOREXANT 10 MG TABLET PO SCH (21:38)
[2017-04-29] MEDS: MICONAZOLE NITRATE 100 MG SUPP SUPP.VAG PV SCH (21:38)
[2017-04-30] MEDS: MAG HYDROX/AL HYDROX/SIMETH 30 ML UNIT-DOSE CUP PO PRN ×2 (00:21→07:55)
[2017-04-30] MEDS ORDERED: METHADONE HCL 10 MG TABLET ONE ×2 (03:23→17:34)
[2017-04-30] MEDS ORDERED: METHADONE HCL 5 MG TABLET ONE ×2 (03:23→17:34)
[2017-04-30] MEDS ORDERED: METHADONE HCL 40 MG DISPERSABLE TABLET ONE ×2 (03:23→17:35)
[2017-04-30] MEDS: METHADONE 40 MG, METHADONE 30 MG, METHADONE 5 MG PO SCH ×2 (06:18→18:16)
[2017-04-30] MEDS: GABAPENTIN 400 MG CAPSULE (FP) PO SCH ×3 (06:19→22:05)
[2017-04-30] MEDS: CLINDAMYCIN HCL 150 MG CAPSULE (FP) PO SCH ×3 (06:19→22:05)
[2017-04-30] MEDS ORDERED: PT OWN MED DRAWER 7, Y5N ONE ×3 (07:32→22:08)
[2017-04-30] MEDS: EFAVIRENZ 600 MG TABLET PO SCH (09:10)
[2017-04-30] MEDS: DULoxetine HCL 20 MG CAPSULE.DR (FP) PO SCH (09:10)
[2017-04-30] MEDS: PRENATAL VITAMINS W/ FOLIC ACID TABLET (FP) PO SCH (09:10)
[2017-04-30] MEDS: EMTRICITABINE 200MG/TENOFOVIR 300MG PO SCH (09:10)
[2017-04-30] MEDS: FLUTICASONE PROP 0.05% 16 GM NASAL SPRAY NS SCH (09:11)
[2017-04-30] MEDS: NICOTINE 14 MG/24 HOURS TOPICAL PATCH TD SCH (09:11)
--- NOTE | 2017-04-30 14:46 | PN ---
[facility] Progress Note (SOAP) Subjective: c/o [place] insomnia, tolerating methadone dose reduction without comp;aints Objective: 04/30/17 14:45 Vital Signs - 24 hr 04/30/17 04/30/17 03:30 07:16 Temperature 98.0 F Pulse Rate 98 H Respiratory 16 16 Rate Blood Pressure 115/72 Laboratory Tests 04/22/17 04/22/17 04/22/17 15:40 15:40 15:40 WBC 9.7 D RBC 4.16 Hgb 12.1 D Hct 38.0 MCV 91.4 MCH 29.2 MCHC 32.0 RDW 13.1 D Plt Count 255 MPV 9.3 D Sodium 140 Potassium 3.6 Chloride 104 Carbon Dioxide 27 Anion Gap 9 BUN 10 Creatinine 0.8 Creat Clearance w eGFR > 60 Random Glucose 62 L Calcium 8.3 L Magnesium Total Bilirubin 0.8 D AST 19 ALT 22 Alkaline Phosphatase 112 Total Protein 9.0 H Albumin 3.2 L Urine Color Urine Appearance Urine pH Ur Specific [place] Urine Protein Urine Glucose (UA) Urine Ketones Urine Blood Urine Nitrite Urine Bilirubin Urine Urobilinogen Ur Leukocyte Esterase Urine WBC (Auto) Urine RBC (Auto) Ur Epithelial Cells RPR Titer Nonreactive 04/23/17 04/24/17 17:00 09:30 WBC RBC Hgb Hct MCV MCH MCHC RDW Plt Count MPV Sodium 139 Potassium 4.0 Chloride 106 Carbon Dioxide 26 Anion Gap 7 L BUN 12 Creatinine 1.0 Creat Clearance w eGFR 56.75 Random Glucose 94 Calcium 8.3 L Magnesium 1.9 Total Bilirubin 0.4 D AST 20 ALT 25 Alkaline Phosphatase 104 Total Protein 8.6 H Albumin 3.0 L Urine Color Yellow Urine Appearance Clear Urine pH 7.0 Ur Specific [place] 1.011 Urine Protein Negative Urine Glucose (UA) Negative Urine Ketones Negative Urine Blood Negative Urine Nitrite Negative Urine Bilirubin Negative Urine Urobilinogen Negative Ur Leukocyte Esterase 3+ H D Urine WBC (Auto) 3 Urine RBC (Auto) 3 Ur Epithelial Cells Few RPR Titer Assessment: 04/30/17 14:45 d/c benadryl for sleep, increase neurontin to 800mg qHS and 400mg bid, zantack for indigestion w clotrimazole [place], if no imporvement consdier esophageal candiddiasis and need for diflucan.
[2017-04-30] MEDS: CLOTRIMAZOLE 10 MG TROCHE (FP) PO SCH ×2 (18:15→22:04)
[2017-04-30] MEDS: MICONAZOLE NITRATE 100 MG SUPP SUPP.VAG PV SCH (22:00)
[2017-04-30] MEDS: SUVOREXANT 10 MG TABLET PO SCH (22:06)
[2017-04-30] MEDS: THIAMINE HCL 100 MG TABLET (FP) PO SCH (22:06)
[2017-04-30] MEDS: RANITIDINE HCL 150 MG TABLET (FP) PO SCH (22:06)
[2017-05-01] MEDS: LOPERAMIDE HCL 2 MG CAPSULE PO PRN ×3 (00:08→21:49)
[2017-05-01] MEDS ORDERED: METHADONE HCL 5 MG TABLET ONE ×2 (05:45→17:24)
[2017-05-01] MEDS ORDERED: METHADONE HCL 40 MG DISPERSABLE TABLET ONE ×2 (05:46→17:25)
[2017-05-01] MEDS ORDERED: METHADONE HCL 10 MG TABLET ONE ×2 (05:46→17:24)
[2017-05-01] MEDS: CLINDAMYCIN HCL 150 MG CAPSULE (FP) PO SCH ×3 (06:26→21:49)
[2017-05-01] MEDS: GABAPENTIN 400 MG CAPSULE (FP) PO SCH ×3 (06:27→21:49)
[2017-05-01] MEDS: METHADONE 40 MG, METHADONE 30 MG, METHADONE 5 MG PO SCH ×2 (06:27→17:59)
[2017-05-01] MEDS: CLOTRIMAZOLE 10 MG TROCHE (FP) PO SCH ×5 (06:27→21:50)
[2017-05-01] MEDS: EFAVIRENZ 600 MG TABLET PO SCH (10:00)
[2017-05-01] MEDS: EMTRICITABINE 200MG/TENOFOVIR 300MG PO SCH (10:00)
[2017-05-01] MEDS: FLUTICASONE PROP 0.05% 16 GM NASAL SPRAY NS SCH (10:18)
[2017-05-01] MEDS: PRENATAL VITAMINS W/ FOLIC ACID TABLET (FP) PO SCH (10:18)
[2017-05-01] MEDS: NICOTINE 14 MG/24 HOURS TOPICAL PATCH TD SCH (10:18)
[2017-05-01] MEDS: RANITIDINE HCL 150 MG TABLET (FP) PO SCH ×2 (10:18→21:49)
[2017-05-01] MEDS: DULoxetine HCL 20 MG CAPSULE.DR (FP) PO SCH (10:18)
[2017-05-01] MEDS ORDERED: PT OWN MED DRAWER 7, Y5N ONE ×2 (13:38→13:39)
[2017-05-01] MEDS: SUVOREXANT 10 MG TABLET PO SCH (21:50)
[2017-05-01] MEDS: THIAMINE HCL 100 MG TABLET (FP) PO SCH (21:50)
[2017-05-02] MEDS ORDERED: METHADONE HCL 5 MG TABLET ONE ×2 (05:29→16:51)
[2017-05-02] MEDS ORDERED: METHADONE HCL 40 MG DISPERSABLE TABLET ONE ×2 (05:29→16:52)
[2017-05-02] MEDS ORDERED: METHADONE HCL 10 MG TABLET ONE ×2 (05:29→16:51)
[2017-05-02] MEDS: METHADONE 40 MG, METHADONE 30 MG, METHADONE 5 MG PO SCH ×2 (06:16→19:02)
[2017-05-02] MEDS: CLINDAMYCIN HCL 150 MG CAPSULE (FP) PO SCH ×3 (06:17→21:43)
[2017-05-02] MEDS: GABAPENTIN 400 MG CAPSULE (FP) PO SCH ×3 (06:18→21:43)
[2017-05-02] MEDS: CLOTRIMAZOLE 10 MG TROCHE (FP) PO SCH ×5 (06:19→21:45)
[2017-05-02] MEDS: LOPERAMIDE HCL 2 MG CAPSULE PO PRN (06:50)
[2017-05-02] MEDS: EFAVIRENZ 600 MG TABLET PO SCH (10:16)
[2017-05-02] MEDS: FLUTICASONE PROP 0.05% 16 GM NASAL SPRAY NS SCH (10:16)
[2017-05-02] MEDS: EMTRICITABINE 200MG/TENOFOVIR 300MG PO SCH (10:16)
[2017-05-02] MEDS: NICOTINE 14 MG/24 HOURS TOPICAL PATCH TD SCH (10:17)
[2017-05-02] MEDS: PRENATAL VITAMINS W/ FOLIC ACID TABLET (FP) PO SCH (10:17)
[2017-05-02] MEDS: DULoxetine HCL 20 MG CAPSULE.DR (FP) PO SCH (10:17)
[2017-05-02] MEDS: RANITIDINE HCL 150 MG TABLET (FP) PO SCH ×2 (10:17→21:43)
[2017-05-02] MEDS: THIAMINE HCL 100 MG TABLET (FP) PO SCH (21:43)
[2017-05-02] MEDS: SUVOREXANT 10 MG TABLET PO SCH (21:44)
[2017-05-03] MEDS ORDERED: METHADONE HCL 5 MG TABLET ONE ×2 (05:56→16:47)
[2017-05-03] MEDS ORDERED: METHADONE HCL 40 MG DISPERSABLE TABLET ONE ×2 (05:57→16:48)
[2017-05-03] MEDS ORDERED: METHADONE HCL 10 MG TABLET ONE ×2 (05:57→16:48)
[2017-05-03] MEDS: METHADONE 40 MG, METHADONE 30 MG, METHADONE 5 MG PO SCH ×2 (06:45→18:30)
[2017-05-03] MEDS: CLOTRIMAZOLE 10 MG TROCHE (FP) PO SCH ×5 (06:46→21:49)
[2017-05-03] MEDS: GABAPENTIN 400 MG CAPSULE (FP) PO SCH ×3 (06:46→21:48)
[2017-05-03] MEDS: CLINDAMYCIN HCL 150 MG CAPSULE (FP) PO SCH ×3 (07:15→21:47)
[2017-05-03] MEDS ORDERED: PT OWN MED DRAWER 7, Y5N ONE ×2 (08:31→13:58)
[2017-05-03] MEDS: EFAVIRENZ 600 MG TABLET PO SCH (10:13)
[2017-05-03] MEDS: PRENATAL VITAMINS W/ FOLIC ACID TABLET (FP) PO SCH (10:13)
[2017-05-03] MEDS: FLUTICASONE PROP 0.05% 16 GM NASAL SPRAY NS SCH (10:13)
[2017-05-03] MEDS: DULoxetine HCL 20 MG CAPSULE.DR (FP) PO SCH (10:13)
[2017-05-03] MEDS: RANITIDINE HCL 150 MG TABLET (FP) PO SCH ×2 (10:13→21:49)
[2017-05-03] MEDS: EMTRICITABINE 200MG/TENOFOVIR 300MG PO SCH (10:13)
[2017-05-03] MEDS: NICOTINE 14 MG/24 HOURS TOPICAL PATCH TD SCH (10:13)
[2017-05-03] MEDS: MAG HYDROX/AL HYDROX/SIMETH 30 ML UNIT-DOSE CUP PO PRN (16:50)
[2017-05-03] MEDS: THIAMINE HCL 100 MG TABLET (FP) PO SCH (21:47)
[2017-05-03] MEDS: SUVOREXANT 10 MG TABLET PO SCH (21:48)
[2017-05-04] MEDS ORDERED: METHADONE HCL 5 MG TABLET ONE ×2 (03:15→17:47)
[2017-05-04] MEDS ORDERED: METHADONE HCL 10 MG TABLET ONE ×2 (03:16→17:47)
[2017-05-04] MEDS ORDERED: METHADONE HCL 40 MG DISPERSABLE TABLET ONE ×2 (03:16→17:48)
[2017-05-04] MEDS: METHADONE 40 MG, METHADONE 30 MG, METHADONE 5 MG PO SCH ×2 (06:06→17:51)
[2017-05-04] MEDS: CLOTRIMAZOLE 10 MG TROCHE (FP) PO SCH ×5 (06:07→21:37)
[2017-05-04] MEDS: GABAPENTIN 400 MG CAPSULE (FP) PO SCH ×3 (06:07→21:37)
[2017-05-04] MEDS: CLINDAMYCIN HCL 150 MG CAPSULE (FP) PO SCH ×3 (06:07→21:37)
[2017-05-04] MEDS: MAG HYDROX/AL HYDROX/SIMETH 30 ML UNIT-DOSE CUP PO PRN (06:15)
[2017-05-04] MEDS: DULoxetine HCL 20 MG CAPSULE.DR (FP) PO SCH (10:09)
[2017-05-04] MEDS: EFAVIRENZ 600 MG TABLET PO SCH (10:10)
[2017-05-04] MEDS: EMTRICITABINE 200MG/TENOFOVIR 300MG PO SCH (10:10)
[2017-05-04] MEDS: FLUTICASONE PROP 0.05% 16 GM NASAL SPRAY NS SCH (10:10)
[2017-05-04] MEDS: NICOTINE 14 MG/24 HOURS TOPICAL PATCH TD SCH (10:11)
[2017-05-04] MEDS: PRENATAL VITAMINS W/ FOLIC ACID TABLET (FP) PO SCH (10:11)
[2017-05-04] MEDS: RANITIDINE HCL 150 MG TABLET (FP) PO SCH ×2 (10:11→21:37)
[2017-05-04] MEDS: SUVOREXANT 10 MG TABLET PO SCH (21:34)
[2017-05-04] MEDS: THIAMINE HCL 100 MG TABLET (FP) PO SCH (21:37)
[2017-05-05] MEDS ORDERED: METHADONE HCL 10 MG TABLET ONE ×2 (04:37→17:42)
[2017-05-05] MEDS ORDERED: METHADONE HCL 5 MG TABLET ONE ×2 (04:37→17:41)
[2017-05-05] MEDS ORDERED: METHADONE HCL 40 MG DISPERSABLE TABLET ONE ×2 (04:38→17:43)
[2017-05-05] MEDS: CLINDAMYCIN HCL 150 MG CAPSULE (FP) PO SCH ×2 (06:13→13:20)
[2017-05-05] MEDS: GABAPENTIN 400 MG CAPSULE (FP) PO SCH ×3 (06:13→21:25)
[2017-05-05] MEDS: METHADONE 40 MG, METHADONE 30 MG, METHADONE 5 MG PO SCH ×2 (06:14→17:58)
[2017-05-05] MEDS: CLOTRIMAZOLE 10 MG TROCHE (FP) PO SCH ×5 (06:14→21:25)
[2017-05-05] MEDS: MAG HYDROX/AL HYDROX/SIMETH 30 ML UNIT-DOSE CUP PO PRN (06:15)
[2017-05-05] MEDS: LOPERAMIDE HCL 2 MG CAPSULE PO PRN ×2 (06:54→17:59)
[2017-05-05] MEDS ORDERED: PT OWN MED DRAWER 7, Y5N ONE (08:48)
[2017-05-05] MEDS: PRENATAL VITAMINS W/ FOLIC ACID TABLET (FP) PO SCH (10:20)
[2017-05-05] MEDS: EFAVIRENZ 600 MG TABLET PO SCH (10:21)
[2017-05-05] MEDS: EMTRICITABINE 200MG/TENOFOVIR 300MG PO SCH (10:21)
[2017-05-05] MEDS: DULoxetine HCL 20 MG CAPSULE.DR (FP) PO SCH (10:22)
[2017-05-05] MEDS: RANITIDINE HCL 150 MG TABLET (FP) PO SCH ×2 (10:24→21:24)
[2017-05-05] MEDS: NICOTINE 14 MG/24 HOURS TOPICAL PATCH TD SCH (10:24)
[2017-05-05] MEDS: FLUTICASONE PROP 0.05% 16 GM NASAL SPRAY NS SCH (10:24)
[2017-05-05] MEDS: THIAMINE HCL 100 MG TABLET (FP) PO SCH (21:24)
[2017-05-05] MEDS: SUVOREXANT 10 MG TABLET PO SCH (21:25)
[2017-05-06] MEDS ORDERED: METHADONE HCL 5 MG TABLET ONE (03:24)
[2017-05-06] MEDS ORDERED: METHADONE HCL 40 MG DISPERSABLE TABLET ONE (03:25)
[2017-05-06] MEDS ORDERED: METHADONE HCL 10 MG TABLET ONE (03:25)
[2017-05-06] MEDS: METHADONE 40 MG, METHADONE 30 MG, METHADONE 5 MG PO SCH (06:20)
[2017-05-06] MEDS: GABAPENTIN 400 MG CAPSULE (FP) PO SCH ×3 (06:21→21:27)
[2017-05-06] MEDS: CLOTRIMAZOLE 10 MG TROCHE (FP) PO SCH ×5 (06:21→21:28)
[2017-05-06] MEDS: NICOTINE 14 MG/24 HOURS TOPICAL PATCH TD SCH (09:07)
[2017-05-06] MEDS: DULoxetine HCL 20 MG CAPSULE.DR (FP) PO SCH (09:07)
[2017-05-06] MEDS: PRENATAL VITAMINS W/ FOLIC ACID TABLET (FP) PO SCH (09:07)
[2017-05-06] MEDS: FLUTICASONE PROP 0.05% 16 GM NASAL SPRAY NS SCH (09:07)
[2017-05-06] MEDS: EFAVIRENZ 600 MG TABLET PO SCH (09:07)
[2017-05-06] MEDS: RANITIDINE HCL 150 MG TABLET (FP) PO SCH ×2 (09:08→21:28)
[2017-05-06] MEDS: EMTRICITABINE 200MG/TENOFOVIR 300MG PO SCH (09:08)
[2017-05-06] MEDS: LOPERAMIDE HCL 2 MG CAPSULE PO PRN (09:09)
--- NOTE | 2017-05-06 14:09 | PN ---
[facility] Progress Note (SOAP) Subjective: c/o opioid withdrwal on decreased dose of methdone, diarrhea unrelieved by imodium Objective: 05/06/17 14:15 Vital Signs - 24 hr 05/06/17 05/06/17 00:30 07:29 Temperature 97.8 F Pulse Rate 83 Respiratory 16 18 Rate Blood Pressure 111/79 Laboratory Tests 04/22/17 04/22/17 04/22/17 15:40 15:40 15:40 WBC 9.7 D RBC 4.16 Hgb 12.1 D Hct 38.0 MCV 91.4 MCH 29.2 MCHC 32.0 RDW 13.1 D Plt Count 255 MPV 9.3 D Sodium 140 Potassium 3.6 Chloride 104 Carbon Dioxide 27 Anion Gap 9 BUN 10 Creatinine 0.8 Creat Clearance w eGFR > 60 Random Glucose 62 L Calcium 8.3 L Magnesium Total Bilirubin 0.8 D AST 19 ALT 22 Alkaline Phosphatase 112 Total Protein 9.0 H Albumin 3.2 L Urine Color Urine Appearance Urine pH Ur Specific [place] Urine Protein Urine Glucose (UA) Urine Ketones Urine Blood Urine Nitrite Urine Bilirubin Urine Urobilinogen Ur Leukocyte Esterase Urine WBC (Auto) Urine RBC (Auto) Ur Epithelial Cells RPR Titer Nonreactive 04/23/17 04/24/17 17:00 09:30 WBC RBC Hgb Hct MCV MCH MCHC RDW Plt Count MPV Sodium 139 Potassium 4.0 Chloride 106 Carbon Dioxide 26 Anion Gap 7 L BUN 12 Creatinine 1.0 Creat Clearance w eGFR 56.75 Random Glucose 94 Calcium 8.3 L Magnesium 1.9 Total Bilirubin 0.4 D AST 20 ALT 25 Alkaline Phosphatase 104 Total Protein 8.6 H Albumin 3.0 L Urine Color Yellow Urine Appearance Clear Urine pH 7.0 Ur Specific [place] 1.011 Urine Protein Negative Urine Glucose (UA) Negative Urine Ketones Negative Urine Blood Negative Urine Nitrite Negative Urine Bilirubin Negative Urine Urobilinogen Negative Ur Leukocyte Esterase 3+ H D Urine WBC (Auto) 3 Urine RBC (Auto) 3 Ur Epithelial Cells Few RPR Titer Assessment: 05/06/17 14:15 increase methdone to 8mg bid today, d/c imodium, start lomotil 1 dose now and prn, may nbe realted to methadone withdrawal, antibiotics were d/c
[2017-05-06] MEDS ORDERED: DIPHENOXYLATE 2.5/ATROPINE.025 1 COMBO TABLET PO ONE (14:14)
[2017-05-06] MEDS ORDERED: DIPHENOXYLATE 2.5/ATROPINE.025 1 COMBO TABLET PO PRN (14:14)
[2017-05-06] MEDS: METHADONE HCL 40 MG DISPERSABLE TABLET PO SCH (17:59)
[2017-05-06] MEDS: IBUPROFEN 400 MG TABLET (FP) PO PRN (21:26)
[2017-05-06] MEDS: THIAMINE HCL 100 MG TABLET (FP) PO SCH (21:28)
[2017-05-06] MEDS: SUVOREXANT 10 MG TABLET PO SCH (21:28)
[2017-05-07] MEDS: CLOTRIMAZOLE 10 MG TROCHE (FP) PO SCH ×5 (06:26→21:24)
[2017-05-07] MEDS: METHADONE HCL 40 MG DISPERSABLE TABLET PO SCH ×2 (06:26→18:14)
[2017-05-07] MEDS: GABAPENTIN 400 MG CAPSULE (FP) PO SCH ×3 (06:27→21:22)
[2017-05-07] MEDS ORDERED: PT OWN MED DRAWER 7, Y5N ONE ×2 (09:31→11:08)
[2017-05-07] MEDS: PRENATAL VITAMINS W/ FOLIC ACID TABLET (FP) PO SCH (10:11)
[2017-05-07] MEDS: FLUTICASONE PROP 0.05% 16 GM NASAL SPRAY NS SCH (10:12)
[2017-05-07] MEDS: NICOTINE 14 MG/24 HOURS TOPICAL PATCH TD SCH (10:12)
[2017-05-07] MEDS: DULoxetine HCL 20 MG CAPSULE.DR (FP) PO SCH (10:12)
[2017-05-07] MEDS: EFAVIRENZ 600 MG TABLET PO SCH (10:12)
[2017-05-07] MEDS: EMTRICITABINE 200MG/TENOFOVIR 300MG PO SCH (10:13)
[2017-05-07] MEDS: RANITIDINE HCL 150 MG TABLET (FP) PO SCH ×2 (10:14→21:22)
[2017-05-07] MEDS ORDERED: COLLOIDAL OATMEAL 1 BAR EACH TP PRN (13:27)
[2017-05-07] MEDS ORDERED: AMMONIUM LACTATE 12% LOTION 225 GM BOTTLE TP PRN (13:27)
[2017-05-07] MEDS ORDERED: diphenhydrAMINE HCL 50 MG CAPSULE PO PRN (13:28)
[2017-05-07] MEDS: THIAMINE HCL 100 MG TABLET (FP) PO SCH (21:22)
[2017-05-07] MEDS: IBUPROFEN 400 MG TABLET (FP) PO PRN (21:23)
[2017-05-08] MEDS: METHADONE HCL 40 MG DISPERSABLE TABLET PO SCH ×2 (06:19→17:54)
[2017-05-08] MEDS: CLOTRIMAZOLE 10 MG TROCHE (FP) PO SCH ×5 (06:20→21:46)
[2017-05-08] MEDS: GABAPENTIN 400 MG CAPSULE (FP) PO SCH ×3 (06:20→21:44)
[2017-05-08] MEDS: DULoxetine HCL 20 MG CAPSULE.DR (FP) PO SCH (09:56)
[2017-05-08] MEDS: FLUTICASONE PROP 0.05% 16 GM NASAL SPRAY NS SCH (09:56)
[2017-05-08] MEDS: RANITIDINE HCL 150 MG TABLET (FP) PO SCH ×2 (09:57→21:45)
[2017-05-08] MEDS: EMTRICITABINE 200MG/TENOFOVIR 300MG PO SCH (09:57)
[2017-05-08] MEDS: EFAVIRENZ 600 MG TABLET PO SCH (09:57)
[2017-05-08] MEDS: PRENATAL VITAMINS W/ FOLIC ACID TABLET (FP) PO SCH (09:57)
[2017-05-08] MEDS: NICOTINE 14 MG/24 HOURS TOPICAL PATCH TD SCH (09:58)
[2017-05-08] MEDS: THIAMINE HCL 100 MG TABLET (FP) PO SCH (21:45)
[2017-05-08] MEDS: IBUPROFEN 400 MG TABLET (FP) PO PRN (21:46)
[2017-05-09] MEDS: METHADONE HCL 40 MG DISPERSABLE TABLET PO SCH (06:18)
[2017-05-09] MEDS: CLOTRIMAZOLE 10 MG TROCHE (FP) PO SCH ×5 (06:19→21:04)
[2017-05-09] MEDS: GABAPENTIN 400 MG CAPSULE (FP) PO SCH ×3 (06:19→21:03)
[2017-05-09] MEDS: FLUTICASONE PROP 0.05% 16 GM NASAL SPRAY NS SCH (09:33)
[2017-05-09] MEDS: DULoxetine HCL 20 MG CAPSULE.DR (FP) PO SCH (09:33)
[2017-05-09] MEDS: EFAVIRENZ 600 MG TABLET PO SCH (09:34)
[2017-05-09] MEDS: PRENATAL VITAMINS W/ FOLIC ACID TABLET (FP) PO SCH (09:34)
[2017-05-09] MEDS: RANITIDINE HCL 150 MG TABLET (FP) PO SCH ×2 (09:34→21:03)
[2017-05-09] MEDS: NICOTINE 14 MG/24 HOURS TOPICAL PATCH TD SCH (09:34)
[2017-05-09] MEDS: EMTRICITABINE 200MG/TENOFOVIR 300MG PO SCH (09:34)
[2017-05-09] MEDS ORDERED: METHADONE HCL 10 MG TABLET PO ONE (12:42)
[2017-05-09] MEDS ORDERED: METHADONE HCL 40 MG DISPERSABLE TABLET PO ONE (18:00)
[2017-05-09] MEDS: THIAMINE HCL 100 MG TABLET (FP) PO SCH (21:03)
[2017-05-09] MEDS: IBUPROFEN 400 MG TABLET (FP) PO PRN (21:04)
[2017-05-09] MEDS ORDERED: SUVOREXANT 10 MG TABLET PO ONE (22:00)
[2017-05-10] MEDS ORDERED: METHADONE HCL 40 MG DISPERSABLE TABLET PO SCH (06:00)
[2017-05-10] MEDS: GABAPENTIN 400 MG CAPSULE (FP) PO SCH (06:10)
[2017-05-10] MEDS: CLOTRIMAZOLE 10 MG TROCHE (FP) PO SCH (06:11)
[2017-05-10 07:00] VITALS: BP 117/83; PULSE 85; TEMP 97.8
--- NOTE | 2017-05-10 08:34 | PN ---
Psychiatric Progress Note Vital Signs: Vital Signs Period Temp Pulse Resp BP Sys/Umanzor Pulse Ox Last 24 Hr 97.8 F 85 16-18 117/83 Date of Session: 05/10/17 Chief Complaint:: Discharge visit HPI: Patient addressed Alcohol,Cocaine,Cannabis and Opioid dependence comorbid with Substance induced mood/sleep disorder. ROS: HIV+,Arthritis. Current Medications: Active Medications Generic Name Dose Route Start Last Admin Trade Name Freq PRN Reason Stop Dose Admin Acetaminophen 650 mg 04/22/17 14:55 04/27/17 10:11 Tylenol - PO 650 mg Q4H PRN Administration FEVER Al Hydroxide/Mg Hydroxide 30 ml 04/22/17 14:55 05/05/17 06:15 Mylanta Oral Suspension - PO 30 ml Q6H PRN Administration DYSPEPSIA Albuterol Sulfate 2 puff 04/22/17 14:59 Ventolin Hfa Inhaler - IH Q4H PRN ASTHMA Clotrimazole 10 mg 04/30/17 18:00 05/10/17 06:11 Mycelex Nica's - PO Not Given 5XD SHANE Duloxetine HCl 20 mg 04/24/17 10:00 05/09/17 09:33 Cymbalta - PO 20 mg DAILY SHANE Administration Efavirenz 600 mg 04/23/17 10:00 05/09/17 09:34 Sustiva - PO 600 mg DAILY SHANE Administration Emtricitabine/Tenofovir 1 tab 04/23/17 10:00 05/09/17 09:34 Truvada PO 1 tab DAILY SHANE Administration Eucalyptus/Menthol/Phenol/Sorbitol 1 each 04/22/17 14:55 Cepastat Lozenge - MM Q4H PRN SORE THROAT Fluticasone Propionate 1 spray 04/23/17 10:00 05/09/17 09:33 Flonase - NS 1 spray DAILY SHANE Administration Gabapentin 400 mg 05/01/17 06:00 05/10/17 06:10 Neurontin - PO 400 mg BID@0600,1400 SHANE Administration Gabapentin 800 mg 04/30/17 22:00 05/09/17 21:03 Neurontin - PO 800 mg HS SHANE Administration Guaifenesin 10 ml 04/22/17 14:55 Robitussin Dm - PO Q6H PRN COUGH Ibuprofen 400 mg 04/22/17 14:55 05/09/17 21:04 Motrin - PO 400 mg Q6H PRN Administration Pain level 4-6 Magnesium Citrate 300 ml 04/22/17 14:55 Citroma - PO Q48H PRN CONSTIPATION Magnesium Hydroxide 30 ml 04/22/17 14:55 Milk Of Magnesia - PO DAILY PRN CONSTIPATION Methadone HCl 160 mg 05/10/17 06:00 05/10/17 06:10 Dolophine - PO 160 mg DAILY@0600 SHANE Administration Nicotine 14 mg 04/29/17 15:30 05/09/17 09:34 Nicoderm Patch - TD Not Given DAILY SHANE Nicotine Polacrilex 2 mg 04/29/17 14:33 Nicorette Gum - BUC Q2H PRN NICOTINE REPLACEMENT RX Multivit/Folic Acid/Iron 1 tab 04/23/17 10:00 05/09/17 09:34 Vitamins (Sjr) - PO 1 tab DAILY SHANE Administration Ranitidine HCl 150 mg 04/30/17 22:00 05/09/17 21:03 Zantac - PO 150 mg BID SHANE Administration Thiamine HCl 100 mg 04/22/17 22:00 05/09/17 21:03 Vitamin B1 - PO 100 mg HS SHANE Administration Current Side Effect: No Lab tests ordered: No Lab tests reviewed: Yes Provider note:: Patient completed this program today.She has met her treatment goals and will continue to addres her issues on outpatient basis at [facility] in the [place].Patient reports finding that current medications:Neurontin 40 mg po bid and Cymbalta 20 mg po daily help to cope with depression,mood instability,anxiety.Scripts for 30 days provided.patient identifies areas of difficulties and ways to maintain recovery.[place][portive threpay provided. Patient is stable for discharge today. Total face to face time:: 30 Mental Status Exam - Mental Status Exam Alert and Oriented to: Time, Place, Person Cognitive Function: Grossly Intact Patient Appearance: Well Groomed Mood: Hopeful, Euthymic Affect: Appropriate, Mood Congruent Patient Behavior: Talkative Speech Pattern: Clear Voice Loudness: Normal Thought Process: Goal Oriented Thought Disorder: Not Present Hallucinations: Denies Suicidal Ideation: Denies Homicidal Ideation: Denies Insight/Judgement: Fair Sleep: Fair Appetite: Fair Muscle strength/Tone: Normal Gait/Station: Normal Psychiatric Treatment Plan - Problem List (1) Cocaine dependence Current Visit: Yes (2) Methadone maintenance therapy patient Current Visit: Yes (3) Arthritis Current Visit: No Comment: . (4) Substance or medication-induced sleep disorder Current Visit: Yes (5) Alcohol dependence Current Visit: Yes Comment: . (6) Cannabis dependence Current Visit: Yes Comment: . (7) HIV disease Current Visit: Yes Comment: . (8) Substance induced mood disorder Current Visit: Yes Comment: .
[2017-05-10] MEDS ORDERED: PT OWN MED DRAWER 7, Y5N ONE (08:42)
== END 2017-05-10 10:00 | disposition home or self-care (01) | DRG 772 ==
LOC: YASAS 11:48 → Y3E 19:12
PROVIDERS: ADMIT Psychiatry & Neurology Psychiatry; ATTEND Psychiatry & Neurology Psychiatry
PROC: HZ42ZZZ Group Counseling for Substance Abuse Treatment, Cognitive-Behavioral (ICD-10-PCS; principal; 2017-04-22)
DX: F11.20 Opioid dependence, uncomplicated (principal); F10.20 Alcohol dependence, uncomplicated; F14.20 Cocaine dependence, uncomplicated; F12.20 Cannabis dependence, uncomplicated; F19.24 Other psychoactive substance dependence with psychoactive substance-induced mood disorder; F19.282 Other psychoactive substance dependence with psychoactive substance-induced sleep disorder; F41.8 Other specified anxiety disorders; F03.90 Unspecified dementia, unspecified severity, without behavioral disturbance, psychotic disturbance, mood disturbance, and anxiety; I10 Essential (primary) hypertension; R42 Dizziness and giddiness; M12.9 Arthropathy, unspecified; R63.4 Abnormal weight loss; Z68.1 Body mass index [BMI] 19.9 or less, adult; R26.89 Other abnormalities of gait and mobility; Z99.89 Dependence on other enabling machines and devices
CPT/HCPCS: 36415; 71046-TC-FY; 80053; 81003; 81015; 83735; 85027; 86593; 87324; 87449; 93005; 93010